=== PATIENT | female | born 1980 | race Caucasian/White ===

== ENCOUNTER 2017-01-04 10:03 | Day surgery (SDC) | payer MEDICAID ==
[~2017-01-04] VITALS: Ht 162.6 cm; Wt 124.5 kg
[2017-01-04 11:09] VITALS: BP 109/61; PULSE 91; TEMP 97.6
[2017-01-04] MEDS ORDERED: ZOFRAN ODT4 MG PO (11:14)
[2017-01-04] MEDS ORDERED: DIFLUCAN150 MG PO (11:14)
[2017-01-04] MEDS ORDERED: CIPRO 500MG TA500 MG PO (11:14)
[2017-01-04] MEDS ORDERED: NORCO 325 MG-51 TAB PO ×2 (11:15→14:34)
[2017-01-04] MEDS ORDERED: ALEVE 220MG220 MG PO (11:16)
[2017-01-04] MEDS ORDERED: ULTRAM 50MG TAB50 MG PO (11:16)
[2017-01-04 14:12] VITALS: BP 111/48; PULSE 84; TEMP 97.3
[2017-01-04 14:27] VITALS: BP 109/49; PULSE 85
[2017-01-04] MEDS ORDERED: PYRIDIUM 100MG100 MG PO (14:35)
[2017-01-04 14:42] VITALS: BP 95/61; PULSE 83
[2017-01-04 14:57] VITALS: BP 118/78; PULSE 88
[2017-01-04 16:02] VITALS: BP 111/48; PULSE 85
== END 2017-01-04 15:20 | disposition home or self-care (01) ==
LOC: SDCO 10:03
DX: N20.1 Calculus of ureter (principal); F17.210 Nicotine dependence, cigarettes, uncomplicated
CPT/HCPCS: C1769; C1894; J0690; J1100; J1885; J2405; J2704; J3010; J7120